=== PATIENT | male | born 1990 | race Two or more races ===

== ENCOUNTER → 2017-07-23 | Outpatient (CLI) | payer OTHER ==
--- NOTE | 2017-07-23 13:08 | REP ---
Left foot series: Four views. History: Pain. Findings: Overall mineralization pattern is normal. Bones, joints and soft tissues are radiographically unremarkable. Impression: Negative left foot radiographs. Signed by Ryan Browning MD 07/23/2017 02:20 P
== END ==
LOC: M LRY 12:27
PROVIDERS: ATTEND Physician Assistant
DX: M79.672 Pain in left foot (principal)